=== PATIENT | female | born 1950 | race Caucasian/White ===

== ENCOUNTER 2021-11-28 05:49 | Emergency (ER) | payer MEDICARE ==
[2021-11-28] MEDS ORDERED: SODIUM CHLORIDE 0.9% 1,000 ML IV STA (06:28)
--- NOTE | 2021-11-28 06:33 | ED Physician Documentation ---
History of Present Illness - Stated complaint Stated Complaint: C+ FALL/HEAD INJ - Chief complaint Chief Complaint: Cardiac - History obtained from History obtained from: Patient - Additonal information Additional information: Patient is a 71-year-old female presenting for evaluation after syncopal episode. She tested positive on for COVID. At that time she had headaches and weakness. She has been sleeping and resting more with decreased p.o. intake. She woke up in the middle of the night feeling very hot and sweaty and went to the bathroom. In the bathroom she felt dizzy and lightheaded and tried to sit down but had a syncopal episode. She did hit her head. She had a brief LOC. heard her fall and came to the bathroom to assist her. She was awake when he came to her. She was able to get up with his assistance and currently reports feeling better. She has recently been having looser stools. She denies cough, chest pain, difficulty breathing, abdominal pain, vomiting, dysuria. She reports a headache since the fall. She does not take a blood thinner. Review of Systems Constitutional: denies: Chills Nose: denies: Congestion Cardiac: denies: Chest pain / pressure Respiratory: denies: Dyspnea, Cough GI: reports: Diarrhea. denies: Abdominal Pain, Vomiting : denies: Dysuria Skin: denies: Rash Musculoskeletal: denies: Back pain Neurologic: reports: Syncope, Headache, Head injury PD PAST MEDICAL HISTORY - Allergies Allergies/Adverse Reactions: Allergies Allergy/AdvReac Type Severity Reaction Status Date / Time No Known Drug Allergies Allergy Verified 11/28/21 06:37 PD ED PE NORMAL - General General: Alert and oriented X 3, No acute distress, Well developed/nourished - HEENT HEENT: PERRL, EOMI, Ears normal, Moist mucous membranes, Pharynx benign, Other (Left parieto-occipital scalp hematoma) - Neck Neck: Supple, no meningeal sign, No bony TTP, C-Spine cleared by NEXUS criteria - Cardiac Cardiac: RRR, No murmur, Strong equal pulses - Respiratory Respiratory: No respiratory distress, Clear bilaterally - Abdomen Abdomen: Normal bowel sounds, Soft, Non tender, Non distended - Derm Derm: Warm and dry - Extremities Extremities: No edema - Neuro Neuro: Alert and oriented X 3, servomechanism assembler 2-12 intact, No motor deficit, No sensory deficit, Normal speech Eye Opening: Spontaneous Motor: Obeys Commands Verbal: Oriented GCS Score: 15 - Psych Psych: Normal mood Results - Vitals Vitals: Vital Signs - 24 hr 11/28/21 11/28/21 11/28/21 05:56 06:27 08:46 Temperature 36.6 C 36.7 C 36.7 C Heart Rate 50 L 86 65 Respiratory 18 16 18 Rate Blood Pressure 127/65 123/67 140/64 H O2 Saturation 96 98 97 Oxygen O2 Source Room air - EKG (time done) 0613 Rhythm: NSR [place]: Normal Intervals: RBBB Ischemia: No: ST elevation c/w ischemia Compare to prior EKG: Old EKG unavailable - Labs Labs: Laboratory Tests 11/28/21 11/28/21 06:29 06:29 WBC 4.1 L RBC 4.68 Hgb 14.1 Hct 41.9 MCV 89.5 MCH 30.1 MCHC 33.7 RDW 12.3 Plt Count 150 MPV 9.9 Neut # (Auto) 2.6 Lymph # (Auto) 1.0 L Bonner # (Auto) 0.5 Eos # (Auto) 0.0 Baso # (Auto) 0.0 Absolute Nucleated RBC 0.00 Nucleated RBC % 0.0 Sodium 134 L Potassium 3.4 L Chloride 99 L Carbon Dioxide 24 Anion Gap 11.0 BUN 20 Creatinine 0.9 Estimated GFR (MDRD) 61 L Glucose 83 Calcium 8.8 Total Bilirubin 0.8 AST 30 ALT 24 Alkaline Phosphatase 62 Total Protein 6.8 Albumin 3.9 Globulin 2.9 Albumin/Globulin Ratio 1.3 PD MEDICAL DECISION MAKING - ED course Complexity details: reviewed results, re-evaluated patient, d/w patient ED course: Patient is a 71-year-old female with recent diagnosis of COVID presenting after a syncopal episode. Neurovascularly intact. She did sustain a head injury. Labs and EKG reviewed without significant findings. Doubt need for admission based on [place] syncope rules. Patient has a normal neuro exam And remains well-appearing. CT head is pending and patient signed out to Dr. Llanos. Anticipate patient can be discharged if CT head is negative. Departure - Departure Disposition: 01 Home, Self Care Clinical Impression: COVID-19 Syncope Qualifiers: Syncope type: unspecified Qualified Code(s): R55 - Syncope and collapse Head injury Qualifiers: Encounter type: initial encounter Qualified Code(s): S09.90XA - Unspecified injury of head, initial encounter Condition: Good Instructions: ED Head Injury Closed, ED Fainting Unkn Cause Follow-Up: Your,doctor in 1 week [Other] Comments: You were evaluated after a syncopal episode and Head injury. Your CT scan did not show any signs of intracranial injury. Your labs were reassuring. You were hydrated with IV fluids.Please make sure to continue to rest and hydrate yourself. Can use acetaminophen for fevers or body aches or any areas of pain.Please continue to quarantine Per CDC guidelines. If you have any worsening symptoms return to the emergency department. Isolation precautions for COVID Day 0 is your first day of symptoms or a positive viral test. Day 1 is the first full day after your symptoms developed or your test specimen was collected. If you have COVID-19 or have symptoms, isolate for at least 5 days. IF YOU: Tested positive for COVID-19 or have symptoms, regardless of vaccination status Stay home for at least 5 days Stay home for 5 days and isolate from others in your home. Wear a well-fitting mask if you must be around others in your home. Do not travel. Ending isolation if you had symptoms End isolation after 5 full days if you are fever-free for 24 hours (without the use of fever-reducing medication) and your symptoms are improving. Ending isolation if you did NOT have symptoms End isolation after at least 5 full days after your positive test. If you got very sick from COVID-19 or have a weakened immune system You should isolate for at least 10 days. Consult your doctor before ending isolation. Take precautions until day 10 Wear a well-fitting mask Wear a well-fitting mask for 10 full days any time you are around others inside your home or in public. Do not go to places where you are unable to wear a mask. Do not travel Do not travel until a full 10 days after your symptoms started or the date your positive test was taken if you had no symptoms. Avoid being around people who are more likely to get very sick from COVID-19. Discharge Date/Time: 11/28/21 08:52
[2021-11-28 06:36] LABS: BASOPHILS % (AUTO) 0.2 %; EOSINOPHILS % (AUTO) 0.5 %; HCT - HEMATOCRIT 41.9 % (37.0-47.0); HGB - HEMOGLOBIN 14.1 g/dL (12.0-16.0); LYMPHOCYTES % (AUTO) 24.8 %; MEAN CORPUSCULAR HEMOGLOBIN 30.1 pg (27.0-31.0); MEAN CORPUSCULAR HGB CONC 33.7 g/dL (32.0-36.0); MEAN CORPUSCULAR VOLUME 89.5 fL (81.0-99.0); MEAN PLATELET VOLUME 9.9 fL (7.9-10.8); MONOCYTES # (AUTO) 0.5 10^3/uL (0.0-1.0); MONOCYTES % (AUTO) 12.1 %; NEUTROPHILS # (AUTO) 2.6 10^3/uL (1.5-6.6); NEUTROPHILS % (AUTO) 62.2 %; PLT - PLATELET COUNT 150 10^3/uL (130-450); RED BLOOD COUNT 4.68 10^6/uL (4.20-5.40); RED CELL DISTRIBUTION WIDTH 12.3 % (12.0-15.0); WHITE BLOOD COUNT 4.1 x10^3/uL (4.8-10.8)
[2021-11-28 06:48] LABS: ALBUMIN 3.9 g/dL (3.2-5.5); ALBUMIN/GLOBULIN RATIO 1.3 (1.0-2.2); BILIRUBIN,TOTAL 0.8 mg/dL (0.2-1.0); CALCIUM 8.8 mg/dL (8.5-10.3); CREATININE 0.9 mg/dL (0.4-1.0); POTASSIUM 3.4 mmol/L (3.5-5.0); TOTAL PROTEIN 6.8 g/dL (6.7-8.2)
[2021-11-28] MEDS ORDERED: POTASSIUM CHLORIDE 20 MEQ TABLET PO STA (06:51)
--- NOTE | 2021-11-28 08:34 | CT Report ---
PROCEDURE: HEAD WO INDICATIONS: syncope/head injury TECHNIQUE: Noncontrast 4.5 mm thick angled axial sections acquired from the foramen magnum to the vertex. For r adiation dose reduction, the following was used: automated exposure control, adjustment of mA and/or kV according to patient size. COMPARISON: None. FINDINGS: Image quality: Excellent. CSF spaces: Basal cisterns are patent. No extra-axial fluid collections. Ventricles are normal in size and shape. Calcifications adjacent to the left tentorium are chronic appearing. Brain: No midline shift. No intracranial masses or hemorrhage. Flaherty-white matter interface is norm al. Skull and face: There is soft tissue swelling and hematoma over the left occiput. Otherwise calvarium and visualized facial bones are intact, without suspicious lesions. Sinuses: 1 cm mucosal retention cyst of the right maxillary sinus. Otherwise paranasal sinuses and ma stoids are clear. IMPRESSION: No acute intracranial abnormality. Reviewed by: Justin Addison on 11/28/2021 7:32 AM [facility] Approved by: Justin Addison on 11/28/2021 7:32 AM [facility] Station ID: [id number]
--- NOTE | 2021-11-28 08:35 | XRAY Report ---
PROCEDURE: Chest 1 View X-Ray INDICATIONS: syncope COMMENTS: syncopy PRIORS: n TECHNIQUE: One view of the chest was acquired. COMPARISON: None FINDINGS: Surgical changes and devices: None. Lungs and pleura: No pleural effusions or pneumothorax. Lungs are clear. Mediastinum: Mediastinal contours appear normal. Heart size is normal. Bones and chest wall: No suspicious bony lesions. Overlying soft tissues appear unremarkable. IMPRESSION: No acute cardiopulmonary abnormality. Reviewed by: Justin Addison on 11/28/2021 7:33 AM [facility] Approved by: Justin Addison on 11/28/2021 7:33 AM [facility] Station ID: [id number]
--- NOTE | 2021-11-28 08:37 | ED Physician Documentation ---
ED Addendum - Addendum Addendum: 11/28/21 08:36 Patient was signed out to me by Dr. Nieto awaiting head CT. Plan is to discharge the patient home if head CT is negative. The head CT result is negative for acute intracranial abnormalities. Patient is asymptomatic and ready to be discharged home. Patient is requesting discharge. Patient counseled regarding signs and symptoms for which I believe and urgent re-evaluation would be necessary. Patient with good understanding of and agreement to plan and is comfortable going home at this time This document was made in part using voice recognition software. While efforts are made to proofread this document, sound alike and grammatical errors may occur. Departure - Departure Disposition: 01 Home, Self Care Clinical Impression: COVID-19 Syncope Qualifiers: Syncope type: unspecified Qualified Code(s): R55 - Syncope and collapse Head injury Qualifiers: Encounter type: initial encounter Qualified Code(s): S09.90XA - Unspecified injury of head, initial encounter Condition: Good Instructions: ED Head Injury Closed, ED Fainting Unkn Cause Follow-Up: Your,doctor in 1 week [Other] Comments: You were evaluated after a syncopal episode and Head injury. Your CT scan did not show any signs of intracranial injury. Your labs were reassuring. You were hydrated with IV fluids.Please make sure to continue to rest and hydrate yourself. Can use acetaminophen for fevers or body aches or any areas of pain.Please continue to quarantine Per CDC guidelines. If you have any worsening symptoms return to the emergency department. Isolation precautions for COVID Day 0 is your first day of symptoms or a positive viral test. Day 1 is the first full day after your symptoms developed or your test specimen was collected. If you have COVID-19 or have symptoms, isolate for at least 5 days. IF YOU: Tested positive for COVID-19 or have symptoms, regardless of vaccination status Stay home for at least 5 days Stay home for 5 days and isolate from others in your home. Wear a well-fitting mask if you must be around others in your home. Do not travel. Ending isolation if you had symptoms End isolation after 5 full days if you are fever-free for 24 hours (without the use of fever-reducing medication) and your symptoms are improving. Ending isolation if you did NOT have symptoms End isolation after at least 5 full days after your positive test. If you got very sick from COVID-19 or have a weakened immune system You should isolate for at least 10 days. Consult your doctor before ending isolation. Take precautions until day 10 Wear a well-fitting mask Wear a well-fitting mask for 10 full days any time you are around others inside your home or in public. Do not go to places where you are unable to wear a mask. Do not travel Do not travel until a full 10 days after your symptoms started or the date your positive test was taken if you had no symptoms. Avoid being around people who are more likely to get very sick from COVID-19.
[2021-11-28 08:48] VITALS: BP 140/64
== END 2021-11-28 08:52 | disposition home or self-care (01) ==
LOC: ED 05:49
DX: U07.1 COVID-19 (principal); S09.90XA Unspecified injury of head, initial encounter; W18.30XA Fall on same level, unspecified, initial encounter; Y92.002 Bathroom of unspecified non-institutional (private) residence as the place of occurrence of the external cause
CPT/HCPCS: 36415; 70450; 71045; 80053; 85025; 93005; 99282; 99284; A9270